=== PATIENT | female | born 1975 | race Two or more races ===

== ENCOUNTER 2023-08-08 16:07 | Emergency (ER) | payer MEDICAID ==
[~2023-08-08] VITALS: Ht 162.6 cm; Wt 58.3 kg
[2023-08-08 16:24] VITALS: BP 133/85; PULSE 86; RESP 16; O2SAT 100
[2023-08-08] MEDS ORDERED: MONT-8 PO (19:20)
[2023-08-08] MEDS ORDERED: AZITTAB PO (19:20)
[2023-08-08] MEDS ORDERED: PROM1SOL4 PO (19:20)
== END 2023-08-08 19:31 | disposition home or self-care (01) ==
LOC: ER 16:07
DX: J06.9 Acute upper respiratory infection, unspecified (principal)